=== PATIENT | female | born 1960 | race Two or more races ===

== ENCOUNTER 2022-11-24 17:39 | Emergency (ER) | payer OTHER ==
[~2022-11-24] VITALS: Ht 162.6 cm; Wt 68.0 kg
[2022-11-24] MEDS ORDERED: ACID REDUCER20 M1 PO (18:03)
== END 2022-11-25 01:06 | disposition home or self-care (01) ==
LOC: ER 17:39
DX: S22.39XA Fracture of one rib, unspecified side, initial encounter for closed fracture (principal); V94.9XXA Unspecified water transport accident, initial encounter; Y93.9 Activity, unspecified; Y92.832 Beach as the place of occurrence of the external cause; Y99.9 Unspecified external cause status